=== PATIENT | male | born 1950 | race Caucasian/White ===

== ENCOUNTER 2021-09-04 14:48 | Emergency (ER) | payer OTHER ==
[2021-09-04 16:05] LABS: Absolute Lymphocytes (CBC) 1.6 K/uL (0.7-4.9); Basophils % 0.4 % (0-1.3); Hematocrit 34.8 % (39.6-49.0); MPV 9.1 fL (7.6-11.3); RBC Red Blood Cell Count 3.76 M/uL (4.33-5.43)
--- NOTE | 2021-09-04 16:24 | ER ---
Nurse's Notes [facility] Name: Ferdinand Sánchez Age: 71 yrs Sex: Male : 1950 Arrival Date: 09/04/2021 Time: 14:52 Bed 12 Private MD: Diagnosis: Right Leg Ecchymosis Presentation: 09/04 15:02 Chief complaint: Chief complaint: Patient states: i had RIGHT knee replacement on 08/31. tw2 i wake up to my leg draining every day for 5 days. at [facility] nobody would talk to me. i missed the rehab and follow up because of the pain. Coronavirus screen: At this time, the client does not indicate any symptoms associated with coronavirus-19. Ebola Screen: Patient denies travel to an Ebola-affected area in the 21 days before illness onset. Initial Sepsis Screen: Does the patient meet any 2 criteria? No. Patient's initial sepsis screen is negative. Does the patient have a suspected source of infection? No. Patient's initial sepsis screen is negative. Risk Assessment: Do you want to hurt yourself or someone else? Patient reports no desire to harm self or others. Onset of symptoms was September 04, 2021. 15:02 Method Of Arrival: Wheelchair tw2 15:02 Acuity: PATRICK 3 tw2 Triage Assessment: 15:05 General: Appears in no apparent distress. uncomfortable, Behavior is calm, cooperative, tw2 appropriate for age, talkative. Pain: Complains of pain in right knee. Historical: - Allergies: 15:06 No Known Allergies; tw2 - Home Meds: 15:06 tamsulosin 0.4 mg oral cap 1 cap once daily [Active]; tw2 - PMHx: 15:06 Back pain; Hypertension; tw2 - PSHx: 15:06 right knee surgery; triple bypass; tw2 - Immunization history:: Client reports having NOT received the Covid vaccine. - Social history:: Smoking status: Patient denies any tobacco usage or history of. Patient uses street drugs, marijuana, and "edibles", "biweekly". Screenin:00 Abuse screen: Denies threats or abuse. Denies injuries from another. Nutritional jl7 screening: No deficits noted. Tuberculosis screening: No symptoms or risk factors identified. Fall Risk IV access (20 points). Assessment: 16:00 Reassessment: Patient appears in no apparent distress at this time. No changes from jl7 previously documented assessment. Patient and/or family updated on plan of care and expected duration. Pain level reassessed. Patient is alert, oriented x 3, equal unlabored respirations, skin warm/dry/pink. Vital Signs: 15:02 BP 117 / 84; Pulse 113; Resp 17; Temp 99.2(TE); Pulse Ox 99% on R/A; Weight 108.86 kg tw2 (R); Height 6 ft. 2 in. (187.96 cm) (R); Pain 8/10; 15:02 Body Mass Index 30.81 (108.86 kg, 187.96 cm) tw2 ED Course: 14:52 Patient arrived in ED. ds1 15:02 Arm band placed on. tw2 15:05 Triage completed. tw2 15:18 Jeremiah Lauren PA is PHCP. [facility] 15:18 Leroy Irvin MD is Attending Physician. [facility] 15:21 Taran Fish RN is Primary Nurse. jl7 15:40 Inserted saline lock: 20 gauge in right antecubital area, using aseptic technique. kj1 Blood collected. 15:40 Initial lab(s) drawn, by ks, sent to lab. kj1 16:00 Patient has correct armband on for positive identification. jl7 16:20 Wound care: to surgical wound located on right knee was dressed with 4X4s, Patient jl7 tolerated well. 16:27 No provider procedures requiring assistance completed. IV discontinued, intact, jl7 bleeding controlled, No redness/swelling at site. Pressure dressing applied. Administered Medications: No medications were administered Outcome: 16:24 Discharge ordered by . [facility] 16:27 Discharged to home via wheelchair, with family. jl7 16:27 Condition: stable 16:27 Discharge instructions given to patient, Instructed on discharge instructions, follow up and referral plans. Demonstrated understanding of instructions, follow-up care. 16:38 Patient left the ED. jl7 Signatures: Jeremiah Lauren PA PA jmm Sanford, Demi ds1 Geetha Guardado RN RN tw2 Taran Fish RN RN jl7 Carlie Barnard kj1 Corrections: (The following items were deleted from the chart) 15:55 15:55 Initial lab(s) drawn, by me, sent to lab. kj1 kj1
--- NOTE | 2021-09-04 16:25 | EDPHYS ---
Physician Documentation [facility] Name: Ferdinand Sánchez Age: 71 yrs Sex: Male : 1950 Arrival Date: 09/04/2021 Time: 14:52 Bed 12 Private MD: ED Physician Leroy Irvin HPI: 09/04 15:36 This 71 yrs old Male presents to ER via Wheelchair with complaints of Post jmm Surgical Bleeding - With Pain. 15:36 The patient presents with pain, that is acute. Onset: The symptoms/episode jmm began/occurred gradually, 4 day(s) ago. Modifying factors: The symptoms are alleviated by nothing. the symptoms are aggravated by nothing. Associated signs and symptoms: Pertinent positives: swelling, Pertinent negatives fever. This is a 71-year-old male with a history of hypertension the presents emerge department with complaints of bleeding from his wound site status post his fifth total knee replacement performed on August 31. Patient has fever and chills but states that he has had too much pain to change his dressings and his clothes. Patient missed his follow-up due to pain. . Historical: - Allergies: 15:06 No Known Allergies; tw2 - Home Meds: 15:06 tamsulosin 0.4 mg oral cap 1 cap once daily [Active]; tw2 - PMHx: 15:06 Back pain; Hypertension; tw2 - PSHx: 15:06 right knee surgery; triple bypass; tw2 - Immunization history:: Client reports having NOT received the Covid vaccine. - Social history:: Smoking status: Patient denies any tobacco usage or history of. Patient uses street drugs, marijuana, and "edibles", "biweekly". ROS: 15:36 Constitutional: Negative for fever, chills, and weight loss, Cardiovascular: Negative jmm for chest pain, palpitations, and edema, Respiratory: Negative for shortness of breath, cough, wheezing, and pleuritic chest pain. 15:36 MS/extremity: Positive for pain. 15:36 All other systems are negative. Exam: 15:36 Constitutional: This is a well developed, well nourished patient who is awake, alert, jmm and in no acute distress. Head/Face: atraumatic. Eyes: EOMI, no conjunctival erythema appreciated ENT: Moist Mucus Membranes Neck: Trachea midline, Supple Chest/axilla: Normal chest wall appearance and motion. Cardiovascular: Regular rate and rhythm. No edema appreciated Respiratory: Normal respirations, no respiratory distress appreciated Abdomen/GI: Non distended, soft Back: Normal ROM 15:36 Skin: Ecchymosis noted diffusely to the right anterior thigh, around the wound site. 15:36 Neuro: Orientation: is normal, Mentation: is normal, Memory: is normal. 15:36 Psych: Behavior/mood is pleasant, cooperative. Vital Signs: 15:02 BP 117 / 84; Pulse 113; Resp 17; Temp 99.2(TE); Pulse Ox 99% on R/A; Weight 108.86 kg tw2 (R); Height 6 ft. 2 in. (187.96 cm) (R); Pain 8/10; 15:02 Body Mass Index 30.81 (108.86 kg, 187.96 cm) tw2 MDM: 15:36 Patient medically screened. judit 16:23 Data reviewed: vital signs, nurses notes. Counseling: I had a detailed discussion with david the patient and/or guardian regarding: the historical points, exam findings, and any diagnostic results supporting the discharge/admit diagnosis, lab results, the need for outpatient follow up, to return to the emergency department if symptoms worsen or persist or if there are any questions or concerns that arise at home. ED course: Patient is alert nontoxic in appearance in the ED. Wound was cleaned and redressed. Platelet count was normal. I do not currently suspect a septic joint. Patient advised to follow with orthopedics and otherwise given strict return precautions. Patient understood and agrees to plan of care.. 09/04 15:36 Order name: CBC with Diff; Complete Time: 16:09 [facility] 09/04 16:10 Order name: Wound Care; Complete Time: 16:23 judit Administered Medications: No medications were administered Disposition Summary: 09/04/21 16:24 Discharge Ordered Location: Home david Condition: Stable david Diagnosis - Right Leg Ecchymosis david Followup: david - With: Private Physician - When: 1 - 2 days - Reason: Recheck today's complaints, Continuance of care, Re-evaluation by your physician Discharge Instructions: - Discharge Summary Sheet david - Total Knee Replacement, Care After judit Forms: - Medication Reconciliation Form david - Thank You Letter jmm - Antibiotic Education david - Prescription Opioid Use [facility] Addendum: 09/06/2021 08:37 Co-signature as Attending Physician, Leroy Irvin MD I agree with the assessment and s p3 plan of care. Signatures: Dispatcher [employer] Jeremiah Coulter PA PA jmm Wise, Tara, RN RN tw2 Leroy Irvin MD MD sp3
[2021-09-04 17:17] VITALS: BP 117/84; TEMP 99.2; O2SAT 99
--- OUTSIDE RECORDS SUMMARY | 2021-09-10 15:37 | XMS REPORT | Continuity of Care Document ---
:1950 Author Organization [facility] t Address [address] [place] [address] Care Team Providers Name Role Phone ALAN Attending Clinician Unavailable MD SHAKEEL PHILLIPS Attending Clinician Unavailable MERRILL Attending Clinician Unavailable LAAN Admitting Clinician Unavailable MD SHAKEEL PHILLIPS Admitting Clinician Unavailable Problems This patient has no known problems. Allergies, Adverse Reactions, Alerts This patient has no known allergies or adverse reactions. Medications Ordered Filled Start Stop Current Ordering Indication Dosage Frequency Signature Comments Components Source Medication Medication Date Date Medication? Clinician (SIG) Name Name Losartan Losartan Yes Ty [address] [facility] Potassium Potassium [facility] Aspirin 81 Aspirin 81 Yes Ty [address] [facility] Escitalopra Escitalopra Yes Ty not [facility] m m [facility] &Methfol-B6 &Methfol-B6 [facility] Gabapentin Gabapentin Yes Ty [address] [facility] Mirtazapine Mirtazapine Yes Ty not [facility] Nitroglycer Nitroglycer Yes Ty not [facility] in in [facility] Montelukast [place] Yes Ty not [facility] Sodium Sodium [facility] Pravastatin Pravastatin Yes Ty not [facility] Sodium Sodium [facility] Guaifenesin Guaifenesin Yes Ty [address] [facility] as needed [facility] Carisoprodo Carisoprodo Yes Ty not [facility] Ambien Ambien Yes Ty not [facility] Brilinta Brilinta Yes Ty [address] [facility] Tamsulosin Tamsulosin Yes Ty as [facility] HCl HCl [facility] Carvedilol Carvedilol Yes Ty not [facility] Flonase Flonase Yes Yt not [facility] Procedures This patient has no known procedures. Encounters Start End Encounter Admission Attending Care Care Encounter Source Date/Time Date/Time Type Type Clinicians Facility Department ID 2021-09-08 2021-09-08 Outpatient ALAN, [facility] [id number] 00:00:00 00:00:00 ODETTE 943 [facility] 2021-09-08 2021-09-08 Outpatient ALAN, [facility] [id number] [place] 00:00:00 00:00:00 ODETTE 793 [facility] i 2021-08-31 2021-08-31 Outpatient ALAN, [facility] 481 [id number] [address] 00:00:00 00:00:00 ODETTE 842 Method i 2021-08-26 2021-08-26 Outpatient ALAN, [facility] [id number] [place] 00:00:00 00:00:00 ODETTE 415 Method i 2021-08-16 2021-08-16 Outpatient ALAN, [facility] [id number] [place] 00:00:00 00:00:00 ODETTE 305 Method i 2021-07-22 2021-07-22 Outpatient ALAN, [facility] [id number] [address] 00:00:00 00:00:[address] [address] 2021-07-13 2021-07-13 [facility] [id number] [facility] 2021-06-27 2021-06-27 Outpatient [facility] [id number] [facility] 2021-06-27 2021-06-27 Outpatient [facility] [id number] [facility] 2021-06-21 2021-06-21 Outpatient [facility] [id number] [facility] 2021-06-14 2021-06-14 Outpatient [facility] [id number] [facility] 2021-06-07 2021-06-07 Outpatient [facility] [id number] [facility] 2021-05-25 2021-05-25 Outpatient [facility] [id number] [facility] 2021-05-24 2021-05-24 Outpatient [facility] [id number] [facility] 2021-05-20 2021-05-20 Outpatient [facility] [id number] [facility] 2021-05-11 2021-05-11 Outpatient [facility] [id number] [facility] 2021-03-07 2021-03-07 Outpatient [facility] [id number] [facility] 2021-01-04 2021-01-04 Outpatient [facility] [id number] [facility] 2020-05-14 2020-05-14 [facility] [id number] [facility] 10:00[facility]00 10[facility]00[facility]00 [facility] 2020-05-06 2020-05-06 [facility] [id number] 14:30:00 14:30:00 [facility] 2020-05-03 2020-05-03 Outpatient MRERILL, [facility] [id number] [address] 00:00:00 00:00:[address] [facility] [address] 2020-04-28 2020-04-28 [facility] [id number] [facility] 08:00:00 08:00:00 [facility] 2019-12-29 2019-12-29 Outpatient MERRILL, [facility] [id number] 00:00:00 00:00:[address] [facility] [address] Results Test Description Test Time Test Comments Results Result Comments Source SARS-CoV-2 (COVID-19) RNA [Presence] in Respiratory sp ecimen by 2021-08-26 20:43:50 HAYLEY with probe detection Test Item Value Reference Range Interpretation Comme nts SARS-CoV-2 (COVID-19) RNA [Presence] in Respiratory Not detected No t-Detected specimen by HAYLEY with probe detection (test code = 91626-7) Whether patient is employed in a healthcare setting (test code = 82192-7) Whether the patient has symptoms related to condition of interest (test code = 20531-6) Patient was hospitalized because of this condition (test code = 63578-8) Whether the patient was admitted to intensive care unit (ICU) for condition of interest (test code = 72093-8) Whether patient resides in a congregate care setting (test code = 39160-0)
== END 2021-09-04 16:38 | disposition home or self-care (01) ==
LOC: ER 14:48
DX: R58 Hemorrhage, not elsewhere classified (principal); I10 Essential (primary) hypertension; Z96.651 Presence of right artificial knee joint
CPT/HCPCS: 36415; 85025; 99283

== ENCOUNTER → 2024-01-02 | Emergency (ER) | payer OTHER ==
[~2024-01-02] MED LIST: KETOROLAC 30 MG/ML INJ ONE; NA CHLORIDE 0.9% 500 ML ONE
--- NOTE | 2024-01-02 13:51 | RAD REPORT ---
EXAM DESCRIPTION: CT - Head Brain Wo Cont - 01/02/2024 1:19 pm CLINICAL HISTORY: Head injury status post fall. Weakness COMPARISON: None TECHNIQUE: Computed axial tomography of the head was obtained. IV contrast was not requested. All CT scans are performed using dose optimization technique as appropriate and may include automated exposure control or mA/KV adjustment according to patient size. FINDINGS: An intracranial bleed is not seen The ventricles are normal in caliber No extra-axial fluid collection is noted. Mild to moderate cerebral atrophy. No significant hypodensity within brain noted. Fluid within the sinuses/ mastoids is not seen. 11 millimeter parietal scalp lesion midline IMPRESSION: No acute intracranial abnormality is seen If patient's symptoms persist MRI of the brain would be recommended 11 millimeter parietal scalp lesion nonspecific. Follow-up ultrasound in 3 months could be obtained t o assess stability
[2024-01-02 14:45] LABS: Absolute Eosinophils 0.2 K/uL (0-0.5); Basophils % 0.5 % (0-1.3); Hematocrit 40.2 % (39.6-49.0); Hemoglobin 14.3 g/dL (13.6-17.9); Lymphocytes % 24.3 % (15.3-44.8); MCV 91.4 fL (80-100); Platelets 152 thou/uL (152-406)
[2024-01-02 14:49] LABS: Specific Gravity 1.007 (1.005-1.030); Urine Bilirubin NEGATIVE (Negative); Urine Blood Negative (Negative); Urine Clarity Clear (Clear); Urine Color Light-Yellow (Yellow); Urine Glucose NEGATIVE (Negative); Urine Protein NEGATIVE (Negative); Urine Urobilinogen Normal (Normal); Urine pH 5.5 (5.0-7.0)
[2024-01-02 16:09] LABS: Protime INR 0.97
[2024-01-02 16:15] LABS: Albumin 3.6 g/dL (3.4-5.0); Albumin/Globulin Ratio 1.3 (1.1-1.8); Anion Gap 7.1 mEq/L (5.0-15.0); Bilirubin Direct 0.3 mg/dL (0-0.2); Bilirubin Indirect, Calculated 0.7 mg/dL (0.2-0.8); Globulin 2.7 g/dL (2.3-3.5); Magnesium 2.3 mg/dL (1.6-2.4); Potassium 4.1 mEq/L (3.5-5.1); Protein, Total 6.3 g/dL (6.4-8.2); Troponin High Sensitivity 18.2 pg/mL (<58.9)
--- NOTE | 2024-01-02 17:23 | ER ---
Nurse's Notes [facility] Name: Ferdinand Sánchez Age: 73 yrs Sex: Male : 1950 Arrival Date: 01/02/2024 Time: 12:56 Bed 3 Private MD: Diagnosis: Weakness Presentation: 01/01 13:33 Chief complaint: Patient states: Pt has fallen 4 times in 2 days with last event at tl4 0100 this am. Pt states he has "controlled descents". Pt denies striking his head, LOC. Left hip/shoulder have been painful prior to fall. but he has not been evaluated for them. Coronavirus screen: At this time, the client does not indicate any symptoms associated with coronavirus-19. Ebola Screen: No symptoms or risks identified at this time. Initial Sepsis Screen: Does the patient meet any 2 criteria? No. Patient's initial sepsis screen is negative. Does the patient have a suspected source of infection? No. Patient's initial sepsis screen is negative. Risk Assessment: Do you want to hurt yourself or someone else? Patient reports no desire to harm self or others. Onset of symptoms was December 31, 2023. 13:33 Method Of Arrival: EMS: [facility] tl4 13:33 Acuity: PATRICK 3 tl4 Triage Assessment: 13:40 General: Appears in no apparent distress. Behavior is calm, cooperative. Pain: tl4 Complains of pain in pelvis, left arm and left leg. EENT: No deficits noted. No signs and/or symptoms were reported regarding the EENT system. Neuro: Reports weakness in generalized. Cardiovascular: No deficits noted. Respiratory: No deficits noted. GI: No deficits noted. No signs and/or symptoms were reported involving the gastrointestinal system. : No deficits noted. No signs and/or symptoms were reported regarding the genitourinary system. Derm: No deficits noted. No signs and/or symptoms reported regarding the dermatologic system. Musculoskeletal: Reports weakness in right leg and left leg. Historical: - Allergies: 13:38 No Known Allergies; tl4 - Home Meds: 15:29 Aspirin Oral [Active]; Celecoxib Oral [Active]; cetirizine oral [Active]; clopidogrel tl4 oral [Active]; Cyclobenzaprine Oral [Active]; duloxetine oral [Active]; Eliquis oral [Active]; Isosorbide Mononitrate Oral [Active]; metoprolol succinate oral [Active]; Oxycodone HCl Oral [Active]; pregabalin Oral [Active]; Trazodone Oral [Active]; valsartan oral [Active]; - PMHx: 13:38 Back pain; Hypertension; Atrial fibrillation; tl4 - PSHx: 13:38 right knee surgery; triple bypass; Coronary artery bypass graft; cardiac stent; tl4 - Immunization history:: Adult Immunizations unknown. - Social history:: Smoking status: Patient/guardian denies using tobacco, the patient reports quitting approximately 30 years ago. Screenin:56 [facility] ED Fall Risk Assessment (Adult) History of falling in the last 3 months, kc6 including since admission No falls in past 3 months (0 pts) Confusion or Disorientation No (0 pts) Intoxicated or Sedated No (0 pts) Impaired Gait No (0 pts) Mobility Assist Device Used No (0 pt) Altered Elimination No (0 pt) Score/Fall Risk Level 0 - 2 = Low Risk. Abuse screen: Denies threats or abuse. Denies injuries from another. Nutritional screening: No deficits noted. Tuberculosis screening: No symptoms or risk factors identified. Assessment: 15:56 General: Appears in no apparent distress. comfortable, well groomed, well developed, kc6 Behavior is calm, cooperative, appropriate for age. Neuro: Level of Consciousness is awake, alert, obeys commands, Oriented to person, place, time, situation, Appropriate for age. Cardiovascular: Capillary refill < 3 seconds. Respiratory: Airway is patent Trachea midline Respiratory effort is even, unlabored, Respiratory pattern is regular, symmetrical. GI: No signs and/or symptoms were reported involving the gastrointestinal system. : No signs and/or symptoms were reported regarding the genitourinary system. EENT: No signs and/or symptoms were reported regarding the EENT system. Derm: Skin is pink, warm \\T\\ dry. Bruising that is dark purple, on right leg and left leg and left arm. Musculoskeletal: No signs and/or symptoms reported regarding the musculoskeletal system. Circulation, motion, and sensation intact. Capillary refill < 3 seconds, Range of motion: intact in all extremities. 16:56 Reassessment: Patient appears in no apparent distress at this time. No changes from kc6 previously documented assessment. Patient and/or family updated on plan of care and expected duration. Pain level reassessed. Patient is alert, oriented x 3, equal unlabored respirations, skin warm/dry/pink. Vital Signs: 13:33 BP 134 / 65; Pulse 90; Resp 17; Temp 97.5(O); Pulse Ox 100% on R/A; Weight 106.59 kg; tl4 Height 6 ft. 2 in. ; Pain 8/10; 15:49 BP 133 / 78 LA Supine (auto/reg); Pulse 65; kc6 15:49 BP 123 / 74 LA Sitting (auto/reg); Pulse 77; kc6 15:49 BP 143 / 84 LA Standing (auto/reg); Pulse 82; kc6 16:56 BP 139 / 81; Pulse 71; Resp 16 S; Pulse Ox 97% on R/A; kc6 17:30 BP 163 / 92; Pulse 75; Resp 16; Temp 97; Pulse Ox 97% ; ko1 13:33 Body Mass Index 30.17 (106.59 kg, 187.96 cm) tl4 13:33 Pain Scale: Adult tl4 ED Course: 13:03 Patient arrived in ED. mg5 13:04 Kandis Barnard [facility]C [facility] kb 13:04 Richard Brown MD is Attending Physician. kb 13:21 CT Head Brain wo Cont In Process Unspecified. EDMS 13:38 Triage completed. tl4 13:40 Arm band placed on left wrist. tl4 14:36 Basic Metabolic Panel Sent. ls5 14:36 CBC with Diff Sent. ls5 14:36 Hepatic Function Sent. ls5 14:36 Magnesium Sent. ls5 14:36 Protime (+inr) Sent. ls5 14:36 Ptt, Activated Sent. ls5 14:36 Troponin High Sensitivity Sent. ls5 15:24 Ana Montague, RN is Primary Nurse. kc6 15:56 Patient has correct armband on for positive identification. Bed in low position. Call kc6 light in reach. Side rails up X2. Adult w/ patient. Client placed on continuous cardiac and pulse oximetry monitoring. NIBP monitoring applied. nuclear monitoring technician on. 16:05 Urine collected: clean catch specimen, clear. me1 17:30 Provided Education on: na. ko1 17:30 No provider procedures requiring assistance completed. IV discontinued, intact, ko1 bleeding controlled, No redness/swelling at site. Pressure dressing applied. Administered Medications: 16:06 Drug: NS 0.9% IV 500 ml IV at bolus once Route: IV; Rate: bolus; Site: left antecubital;kc6 16:50 Drug: Ketorolac IVP 15 mg IVP once Route: IVP; Site: left antecubital; kc6 17:30 Follow up: Response: No adverse reaction ko1 Medication: 17:30 VIS not applicable for this client. ko1 Outcome: 17:22 Discharge ordered by MD. garcía 17:30 Discharged to home ambulatory, ko1 17:30 Condition: stable 17:30 Discharge instructions given to patient, Instructed on discharge instructions, follow up and referral plans. Demonstrated understanding of instructions, follow-up care, 17:38 Patient left the ED. ko1 Signatures: Dispatcher [employer] EDKandis Helms, RAJAN-C KNEE BOLTER-CkAna Rivera RN RN kc6 Celeste San RN RN ko1 Eugene Reynoso ls5 India Villalobos, RN RN ma1 Renetta George mg5 Eze Zaman RN RN tl4
--- NOTE | 2024-01-02 17:23 | EDPHYS ---
Physician Documentation [facility] Name: Ferdinand Sánchez Age: 73 yrs Sex: Male : 1950 Arrival Date: 01/02/2024 Time: 12:56 Bed 3 Private MD: ED Physician Richard Brown HPI: 01/01 13:38 This 73 yrs old Male presents to ER via Unassigned with complaints of Fall Injury. kb 13:38 Pt is a 73 year old male who presents for weakness that started 2 days ago. States he kb has had trouble getting to the restroom due to weakness and has had to lower himself to the ground multiple times and crawl back to the bed. States the weakness is from hips down. Denies chest pain, palpitations, headache, shortness of breath. Denies any falls or injuries. Historical: - Allergies: 13:38 No Known Allergies; tl4 - Home Meds: 15:29 Aspirin Oral [Active]; Celecoxib Oral [Active]; cetirizine oral [Active]; clopidogrel tl4 oral [Active]; Cyclobenzaprine Oral [Active]; duloxetine oral [Active]; Eliquis oral [Active]; Isosorbide Mononitrate Oral [Active]; metoprolol succinate oral [Active]; Oxycodone HCl Oral [Active]; pregabalin Oral [Active]; Trazodone Oral [Active]; valsartan oral [Active]; - PMHx: 13:38 Back pain; Hypertension; Atrial fibrillation; tl4 - PSHx: 13:38 right knee surgery; triple bypass; Coronary artery bypass graft; cardiac stent; tl4 - Immunization history:: Adult Immunizations unknown. - Social history:: Smoking status: Patient/guardian denies using tobacco, the patient reports quitting approximately 30 years ago. ROS: 13:38 Constitutional: As per HPI kb Exam: 13:38 Constitutional: This is a well developed, well nourished patient who is awake, alert, kb and in no acute distress. Head/Face: Normocephalic, atraumatic. ENT: Moist Mucous membranes Cardiovascular: Regular rate Respiratory: Respirations even and unlabored. No increased work of breathing. Talking in full sentences Abdomen/GI: Soft, non-tender. No distention Skin: Warm, dry with normal turgor. Normal color. MS/ Extremity: Pulses equal, no cyanosis. Neurovascular intact. Full, normal range of motion. Neuro: Awake and alert, GCS 15, oriented to person, place, time, and situation. Moves all extremities. 15:47 ECG was reviewed by the Attending Physician. kb Vital Signs: 13:33 BP 134 / 65; Pulse 90; Resp 17; Temp 97.5(O); Pulse Ox 100% on R/A; Weight 106.59 kg; tl4 Height 6 ft. 2 in. ; Pain 8/10; 15:49 BP 133 / 78 LA Supine (auto/reg); Pulse 65; kc6 15:49 BP 123 / 74 LA Sitting (auto/reg); Pulse 77; kc6 15:49 BP 143 / 84 LA Standing (auto/reg); Pulse 82; kc6 16:56 BP 139 / 81; Pulse 71; Resp 16 S; Pulse Ox 97% on R/A; kc6 17:30 BP 163 / 92; Pulse 75; Resp 16; Temp 97; Pulse Ox 97% ; ko1 13:33 Body Mass Index 30.17 (106.59 kg, 187.96 cm) tl4 13:33 Pain Scale: Adult tl4 MDM: 13:04 Patient medically screened. kb 13:38 Data reviewed: vital signs, nurses notes. kb 16:27 ED course: Discussed all results with pt. Pt in agreement with outpatient treatment. Pt kb reports he hasn't eaten since yesterday, tray ordered then will ambulate pt. Plan to discharge home. 17:21 Differential diagnosis: cardiac arrhythmia, generalized weakness, hypovolemia, TIA. kb Consideration of Admission/Observation Escalation of care including admission/observation considered. admission considered, but VSS, pt ambulatory with steady gait and reports he is feeling better. Pt would like to go home. Counseling: I had a detailed discussion with the patient and/or guardian regarding the historical points, exam findings, and any diagnostic results supporting the discharge/admit diagnosis, lab results, radiology results, the need for outpatient follow up, a family practitioner, to return to the emergency department if symptoms worsen or persist or if there are any questions or concerns that arise at home. ED course: Pt ambulates with steady gait. States he is feeling better and ready to go home. . 01/01 13:04 Order name: Basic Metabolic Panel; Complete Time: 16:17 kb 01/01 13:04 Order name: CBC with Diff; Complete Time: 14:55 kb 01/01 13:04 Order name: Hepatic Function; Complete Time: 16:17 kb 01/01 13:04 Order name: Magnesium; Complete Time: 16:17 kb 01/01 13:04 Order name: Protime (+inr); Complete Time: 16:11 kb 01/01 13:04 Order name: Ptt, Activated; Complete Time: 16:11 kb 01/01 13:04 Order name: Troponin High Sensitivity; Complete Time: 16:17 kb 01/01 13:04 Order name: Urinalysis w/ reflexes; Complete Time: 14:53 kb 01/01 13:04 Order name: CT Head Brain wo Cont; Complete Time: 13:51 kb 01/01 13:04 Order name: EKG; Complete Time: 13:05 kb 01/01 13:04 Order name: Cardiac monitoring; Complete Time: 15:27 kb 01/01 13:04 Order name: EKG - Nurse/Tech; Complete Time: 15:48 kb 01/01 13:04 Order name: IV Saline Lock; Complete Time: 14:35 kb 01/01 13:04 Order name: Labs collected and sent; Complete Time: 14:35 kb 01/01 13:04 Order name: NPO; Complete Time: 15:27 kb 01/01 13:04 Order name: O2 Per Protocol; Complete Time: 15:27 kb 01/01 13:04 Order name: O2 Sat Monitoring; Complete Time: 15:27 kb 01/01 13:04 Order name: Orthostatics; Complete Time: 15:48 kb 01/01 14:54 Order name: Labs - recollect needed: recollect light green and light blue top; Complete bd Time: 15:48 0306 17:17 Order name: Misc. Order: ambulate pt; Complete Time: 17:30 kb EC:47 Rate is 74 beats/min. Rhythm is regular. QRS [place] is Normal. PA interval is normal at kb 196 msec. QRS interval is normal at 108 msec. QT interval is normal at 459 msec. Administered Medications: 16:06 Drug: NS 0.9% IV 500 ml IV at bolus once Route: IV; Rate: bolus; Site: left antecubital;kc6 16:50 Drug: Ketorolac IVP 15 mg IVP once Route: IVP; Site: left antecubital; kc6 17:30 Follow up: Response: No adverse reaction ko1 Disposition Summary: 01/02/24 17:22 Discharge Ordered Notes: Location: Home kb Condition: Stable kb Diagnosis - Weakness kb Followup: kb - With: Emergency Department - When: As needed - Reason: Worsening of condition Followup: kb - With: Private Physician - When: 2 - 3 days - Reason: Recheck today's complaints, Continuance of care, Re-evaluation by your physician Discharge Instructions: - Discharge Summary Sheet kb - Weakness, [id number] kb Forms: - Medication Reconciliation Form kb - Thank You Letter kb - Antibiotic Education kb - Prescription Opioid Use kb - Patient Portal Instructions kb - Leadership Thank You Letter kb Addendum: 01/07/2024 06:57 Co-signature as Attending Physician, Richard Brown MD I reviewed the patient's care r n provided by the Advanced Practice Provider and agree with the diagnosis and treatment plan. Signatures: Dispatcher [employer] EDKandis Helms, RAJAN-C SEGMENT PRODUCER-CkMaria R Davis Roman, MD MD rn Campbell, Kaitlyn, RN RN kc6 Eze Zaman RN RN tl4 Celeste San RN ko1 Corrections: (The following items were deleted from the chart) 01/01 13:40 13:38 Pt is a 73 year old male who presents for weakness that started 2 days ago. kb States he has had trouble getting to the restroom due to weakness and has had to lower himself to the ground multiple times and crawl back to the bed. States the weakness is from hips down. Denies chest pain, palpitations, headache, shortness of breath.. kb
[2024-01-02 17:52] VITALS: O2SAT 97
[2024-01-02 18:13] VITALS: BP 163/92; TEMP 97
--- NOTE | 2024-01-03 14:15 | EKG ---
Test Date: 2024-01-02 Test Time: 15:31:49 Product Applications Scientist: MIREILLE MEASUREMENT RESULTS: Intervals: Rate: 68 MO: 196 QRSD: 108 QT: 418 QTc: 444 Jay Em: P: 83 MO: 196 QRS: 1 T: 86 INTERPRETIVE STATEMENTS: Normal sinus rhythm Nonspecific ST and T wave abnormality Abnormal ECG Compared to ECG 12/24/2005 07:43:27 ST (T wave) deviation now present Sinus bradycardia no longer present Myocardial infarct finding no longer present Electronically Signed On 01-03-24 14:12:58 PROTOTYPE SPECIAL BUILD by Lito Wilson
--- NOTE | 2024-01-03 14:15 | EKG ---
Test Date: 2024-01-02 Test Time: 15:26:35 Yarn Polishing Machine Operator: MRIEILLE MEASUREMENT RESULTS: Intervals: Rate: 74 IA: 196 QRSD: 108 QT: 414 QTc: 459 [place]: P: 83 IA: 196 QRS: -11 T: 78 INTERPRETIVE STATEMENTS: Normal sinus rhythm Cannot rule out Anterior infarct, age undetermined Abnormal ECG Compared to ECG 12/24/2005 07:43:27 Sinus bradycardia no longer present Myocardial infarct finding still present Electronically Signed On 01-03-24 14:12:59 GLUE CLAMP OPERATOR by Lito Wilson
== END ==
LOC: ER 12:56
DX: R53.1 Weakness (principal); I10 Essential (primary) hypertension; I48.91 Unspecified atrial fibrillation; Z95.1 Presence of aortocoronary bypass graft; Z95.818 Presence of other cardiac implants and grafts; Z79.01 Long term (current) use of anticoagulants; Z79.82 Long term (current) use of aspirin
CPT/HCPCS: 85025; 80048; 36415; 83735; 85610; 80076; 85730; 81003; 84484; 70450; J7040; 93005; 96374; 99285

== ENCOUNTER 2024-01-10 12:18 | Inpatient (IN) | payer OTHER ==
[2024-01-10 13:45] LABS: Absolute Eosinophils 0.1 K/uL (0-0.5); Absolute Lymphocytes (CBC) 1.4 K/uL (0.7-4.9); Absolute Monocytes 0.9 K/uL (0.1-1.3); Absolute Neutrophil 6.8 K/uL (1.8-8.0); Basophils % 0.4 % (0-1.3); Eosinophils % 1.3 % (0-4.4); Hematocrit 39.8 % (39.6-49.0); Hemoglobin 14.1 g/dL (13.6-17.9); Lymphocytes % 14.6 % (15.3-44.8); MCH 32.2 pg (27.0-35.0); MCHC 35.4 g/dL (32.0-36.0); MPV 9.3 fL (7.6-11.3); Monocytes % 10.1 % (3.3-12.3); Neutrophils % 73.6 % (41.7-73.7); Platelets 189 thou/uL (152-406); RBC Red Blood Cell Count 4.37 M/uL (4.33-5.43); Red Cell Distribution Width 13.5 % (12.1-15.2)
[2024-01-10 13:46] LABS: PT Prothrombin Time 10.9 SECONDS (9.5-12.5); Protime INR 0.99
[2024-01-10] MEDS ORDERED: ONDANSETRON 4 MG/2 ML VIAL ONE (13:46)
[2024-01-10] MEDS ORDERED: FENTANYL CITR 100 MCG/2 ML ONE (13:47)
--- NOTE | 2024-01-10 14:02 | RAD REPORT ---
EXAM DESCRIPTION: RAD - Chest Single View - 01/10/2024 1:54 pm CLINICAL HISTORY: CHEST PAIN Chest pain. COMPARISON: <Comparisons> FINDINGS: Portable technique limits examination quality. Mild interstitial pulmonary edema. The heart is normal in size. No displaced fractures.Sternotomy wir es present. IMPRESSION: Mild CHF.
[2024-01-10 14:05] LABS: Albumin 3.3 g/dL (3.4-5.0); Albumin/Globulin Ratio 1.2 (1.1-1.8); Anion Gap 5.7 mEq/L (5.0-15.0); Bilirubin Direct 0.2 mg/dL (0-0.2); Bilirubin Indirect, Calculated 0.4 mg/dL (0.2-0.8); Bilirubin Total 0.6 mg/dL (0.2-1.0); Globulin 2.7 g/dL (2.3-3.5); Magnesium 2.3 mg/dL (1.6-2.4); Potassium 3.7 mEq/L (3.5-5.1)
[2024-01-10 14:08] LABS: Troponin High Sensitivity 127.1 pg/mL (<58.9)
--- NOTE | 2024-01-10 14:33 | ER ---
Nurse's Notes [facility] Name: Ferdinand Sánchez Age: 73 yrs Sex: Male : 1950 Arrival Date: 01/10/2024 Time: 12:18 Bed 16 Private MD: Diagnosis: Subsequent non-ST elevation (NSTEMI) myocardial infarction Presentation: 01/09 13:00 Chief complaint: Patient states: Woke up with chest pain this morning. Got nitro and nj1 aspirin by EMS, denies pain at this time. 13:00 Coronavirus screen: Vaccine status: Patient reports being unvaccinated. Ebola Screen: nj1 Patient denies travel to an Ebola-affected area in the 21 days before illness onset. Initial Sepsis Screen: Does the patient meet any 2 criteria? No. Patient's initial sepsis screen is negative. Does the patient have a suspected source of infection? No. Patient's initial sepsis screen is negative. Risk Assessment: Do you want to hurt yourself or someone else? Patient reports no desire to harm self or others. Onset of symptoms was January 10, 2024. 13:00 Method Of Arrival: EMS: [facility] nj1 13:00 Acuity: PATRICK 3 nj1 13:00 Care prior to arrival: Medication(s) given: ASA, 81 mg, x 4, Nitroglycerin, 0.4 mg SL x nj1 2, IV initiated. 20 GA, in the right antecubital area, Glucose check: 123. Triage Assessment: 13:00 General: Appears in no apparent distress. comfortable, Behavior is calm, cooperative, nj1 appropriate for age. Historical: - Allergies: 13:14 No Known Allergies; nj1 - PMHx: 13:14 Atrial fibrillation; Back pain; Hypertension; nj1 - PSHx: 13:14 cardiac stent; Coronary artery bypass graft; right knee surgery; triple bypass; nj1 - Immunization history:: Client reports having NOT received the Covid vaccine. - Social history:: Smoking status: Patient denies any tobacco usage or history of. Screenin:36 [facility] ED Fall Risk Assessment (Adult) History of falling in the last 3 months, nj1 including since admission No falls in past 3 months (0 pts) Confusion or Disorientation No (0 pts) Intoxicated or Sedated No (0 pts) Impaired Gait No (0 pts) Mobility Assist Device Used No (0 pt) Altered Elimination No (0 pt) Score/Fall Risk Level 0 - 2 = Low Risk Oriented to surroundings, Maintained a safe environment, Hourly rounding (assess needs \T\ fall precautionary measures) done. Abuse screen: Denies threats or abuse. Denies injuries from another. Nutritional screening: No deficits noted. Tuberculosis screening: No symptoms or risk factors identified. Assessment: 13:00 General: Appears in no apparent distress. comfortable, Behavior is calm, cooperative, nj1 appropriate for age. 13:00 Pain: Denies pain. Neuro: Level of Consciousness is awake, alert, obeys commands, nj1 Oriented to person, place, time, situation. Cardiovascular: Patient's skin is warm and dry. Respiratory: Airway is patent Respiratory effort is even, unlabored. 13:50 Reassessment: Patient appears in no apparent distress at this time. Patient and/or nj1 family updated on plan of care and expected duration. Pain level reassessed. Patient is alert, oriented x 3, equal unlabored respirations, skin warm/dry/pink. Pain: Complains of pain in hips Pain currently is 6 out of 10 on a pain scale. 15:35 Reassessment: Patient appears in no apparent distress at this time. Patient and/or nj1 family updated on plan of care and expected duration. Pain level reassessed. Patient is alert, oriented x 3, equal unlabored respirations, skin warm/dry/pink. 16:46 Reassessment: Patient appears in no apparent distress at this time. Resting/sleeping. nj1 18:04 Reassessment: Patient appears in no apparent distress at this time. Patient and/or nj1 family updated on plan of care and expected duration. Pain level reassessed. Patient is alert, oriented x 3, equal unlabored respirations, skin warm/dry/pink. [facility] here to transport patient. Report given to Krystle ANDREW. Vital Signs: 13:00 BP 145 / 79; Pulse 87; Resp 18; Temp 97.9(O); Pulse Ox 99% on R/A; Weight 105.23 kg; nj1 Height 6 ft. 2 in. ; Pain 0/10; 14:02 BP 154 / 83; Pulse 78; Resp 11; Pulse Ox 98% on R/A; nj1 15:35 BP 136 / 60; Pulse 80; Resp 15; Pulse Ox 97% on R/A; Pain 6/10; nj1 16:44 BP 144 / 62; Pulse 88; Resp 20; Pulse Ox 100% on R/A; nj1 18:05 BP 149 / 84; Pulse 89; Resp 14; Pulse Ox 97% on R/A; nj1 13:00 Body Mass Index 29.79 (105.23 kg, 187.96 cm) nj1 13:00 Pain Scale: Adult nj1 15:35 Pain Scale: Adult nv1 ED Course: 12:22 Patient arrived in ED. as6 13:00 Patient has correct armband on for positive identification. Bed in low position. Call [facility] light in reach. Side rails up X 1. 13:00 Provided Education on: call light, fall precautions. nj1 13:00 Client placed on continuous cardiac and pulse oximetry monitoring. NIBP monitoring nj1 applied. air sampling and monitoring on. 13:06 Sunil Perez PA is PHCP. cp 13:06 Mani Bailey MD is Attending Physician. cp 13:11 Johanny Jules, RN is Primary Nurse. nj1 13:13 Triage completed. nj1 13:15 Arm band placed on. nj1 13:15 Warm blanket given. nj1 13:25 Initial lab(s) drawn, by tx, sent to lab. nj1 13:30 EKG done. nj1 13:50 Lights dimmed. nj1 13:56 XRAY Chest (1 view) In Process Unspecified. EDMS 14:17 Notified Charge Nurse of Troponin 127.1, unable to locate provider, Alejandra Perez. nj1 14:19 Notified ED physician of a critical lab result(s). troponin 127.1, Dr. Lazar informed ll1 (couldn't find C. LULÚ Perez). 14:32 Eliot Brown MD is Hospitalizing Provider. cp 15:03 Angio Aorta For Dissection In Process Unspecified. EDMS 16:22 Inserted saline lock: 24 gauge in left hand, using aseptic technique. nj1 16:25 spoke with keesha at the [facility] transfer center . bc6 16:39 spoke with keesha at the [facility] transfer center with an acceptance bed #[id number]. bc6 17:14 packet given to attending nurse . Johanny Jules . awaiting report to be called. bc6 17:28 No provider procedures requiring assistance completed. Patient transferred, IV remains nj1 in place. 17:30 spoke to [place] with [facility] given an ETA of 30 minutes. 6 17:43 Primary Nurse role handed off by Johanny Jules, QUYNH nj1 17:44 Johanny Jules, RN is Primary Nurse. nj1 Administered Medications: 13:50 Drug: Ondansetron IVP 4 mg IVP once; over 2 minutes Route: IVP; Site: right forearm; nj1 14:30 Follow up: Response: No adverse reaction nj1 13:52 Drug: fentaNYL (PF) IVP 25 mcg IVP once Route: IVP; Site: right forearm; nj1 14:30 Follow up: Response: No adverse reaction; Pain is decreased nj1 16:23 Drug: HEParin IV 4000 units IV at bolus once {Co-Signature: [email or web address] (Eze Zaman RN).} nj1 Route: IV; Rate: bolus; Site: right forearm; 16:23 Follow up: Response: No adverse reaction; IV Status: Completed infusion; IV Intake: nj1 0.8ml 16:25 Drug: Heparin (NM Drip) 12 units/kg/[place] - ([place] [address] units, D5W IV 500 ml) IV at [facility] calculated rate Per protocol; Max initial rate 1000 units/hr {Co-Signature: [email or web address] (Eze Zaman RN).} Route: IV; Rate: calculated rate; Site: right forearm; 18:12 Follow up: Response: No adverse reaction; IV Status: Infusion continued upon transfer; nj1 IV Intake: 35ml Medication: 17:28 VIS not applicable for this client. nj1 Intake: 16:23 IV: 1ml; Total: 1ml. nj1 18:12 IV: 35ml; Total: 36ml. nj1 Outcome: 14:33 Decision to Hospitalize by Provider. cp 16:08 ER care complete, transfer ordered by MD. cp 17:13 Transferred by ground EMS to [facility], Transfer form nj1 completed. Note: Report called to Rina BEAUCHAMP 17:13 Condition: stable nj1 17:13 Instructed on the need for transfer, 18:12 Patient left the ED. [facility] Signatures: Dispatcher [employer] EDFL Sunil Perez PA PA cp Cecilio Rogel RN RN 1 Nate Eugene RN RN as6 Roberta Steinberg bc6 Johanny Jules RN RN nj1 Eze Zaman RN tl4 Corrections: (The following items were deleted from the chart) 14:20 14:19 Notified ED physician of a critical lab result(s). troponin 142.1, Dr. Lazar, ll1 couldn't find C. LULÚ Perez ll1 16:46 15:35 Pulse 80bpm; Resp 15bpm; Pulse Ox 97% RA; Pain 6/10, Adult; nj1 nj1
--- NOTE | 2024-01-10 14:33 | EDPHYS ---
Physician Documentation [facility] Name: Ferdinand Sánchez Age: 73 yrs Sex: Male : 1950 Arrival Date: 01/10/2024 Time: 12:18 Bed 16 Private MD: ED Physician Mani Bailey HPI: 01/09 13:20 This 73 yrs old Male presents to ER via EMS with complaints of Chest Pain. cp 13:20 The patient or guardian reports chest pain that is located primarily in the substernal cp area. 13:20 Onset: this morning, about 1000 upon awakening. cp 13:20 The pain does not radiate. cp 13:20 The chest pain is described as aching. Duration: The patient or guardian reports a cp single episode, that is now resolved. EMS care prior to arrival includes: aspirin, nitroglycerin. Historical: - Allergies: 13:14 No Known Allergies; nj1 - PMHx: 13:14 Atrial fibrillation; Back pain; Hypertension; nj1 - PSHx: 13:14 cardiac stent; Coronary artery bypass graft; right knee surgery; triple bypass; nj1 - Immunization history:: Client reports having NOT received the Covid vaccine. - Social history:: Smoking status: Patient denies any tobacco usage or history of. ROS: 13:30 Constitutional: Negative for body aches, chills, fever, poor PO intake, cp 13:30 Eyes: Negative for injury, pain, redness, and discharge, cp 13:30 ENT: Negative for drainage from ear(s), ear pain, sore throat, difficulty swallowing, difficulty handling secretions, 13:30 Cardiovascular: Positive for chest pain, Negative for edema, palpitations, 13:30 Respiratory: Negative for cough, shortness of breath, wheezing, 13:30 Abdomen/GI: Negative for abdominal pain, vomiting, diarrhea, constipation, 13:30 Neuro: Negative for altered mental status, dizziness, headache, numbness, syncope, weakness, 13:30 All other systems are negative, Exam: 13:33 Constitutional: The patient appears in no acute distress, alert, awake, cp non-diaphoretic, non-toxic, well developed, well nourished, 13:33 Head/Face: Normocephalic, atraumatic. cp 13:33 Eyes: Periorbital structures: appear normal, Conjunctiva: normal, no exudate, no injection, Sclera: no appreciated abnormality, Lids and lashes: appear normal, bilaterally, 13:33 ENT: External ear(s): are unremarkable, Nose: is normal, Mouth: Lips: moist, Oral mucosa: pink and intact, moist, Posterior pharynx: is normal, airway is patent, no erythema, no exudate, 13:33 Neck: ROM/movement: is normal, is supple, without pain, no range of motions limitations, 13:33 Chest/axilla: Inspection: normal, 13:33 Cardiovascular: Rate: normal, Rhythm: regular, Edema: is not appreciated, JVD: is not appreciated, 13:33 Respiratory: the patient does not display signs of respiratory distress, Respirations: normal, no use of accessory muscles, no retractions, labored breathing, is not present, Breath sounds: are clear throughout, no decreased breath sounds, no stridor, no wheezing, 13:33 Abdomen/GI: Inspection: abdomen appears normal, Palpation: abdomen is soft and non-tender, in all quadrants, 13:33 Back: pain, is absent, ROM is normal, 13:33 Neuro: Orientation: to person, place \T\ time. Mentation: is normal, Motor: moves all fours, strength is normal, Sensation: is normal, Vital Signs: 13:00 BP 145 / 79; Pulse 87; Resp 18; Temp 97.9(O); Pulse Ox 99% on R/A; Weight 105.23 kg; nj1 Height 6 ft. 2 in. ; Pain 0/10; 14:02 BP 154 / 83; Pulse 78; Resp 11; Pulse Ox 98% on R/A; nj1 15:35 BP 136 / 60; Pulse 80; Resp 15; Pulse Ox 97% on R/A; Pain 6/10; nj1 16:44 BP 144 / 62; Pulse 88; Resp 20; Pulse Ox 100% on R/A; nj1 18:05 BP 149 / 84; Pulse 89; Resp 14; Pulse Ox 97% on R/A; nj1 13:00 Body Mass Index 29.79 (105.23 kg, 187.96 cm) nj 13:00 Pain Scale: Adult nj 15:35 Pain Scale: Adult [facility] MDM: 13:06 Patient medically screened. cp 15:30 Data reviewed: vital signs, nurses notes, lab test result(s), EKG, radiologic studies, cp CT scan, plain films. 15:30 The patient was not given aspirin in the Emergency Department. Administered by EMS. cp 16:10 Management of patient was discussed with the following: Hospitalist: Vish Fuentes NP cp requests transfer for higher level of care after consultation with assembler bonding due to patient's history of CPR after having cath procedure previously. 01/09 13:12 Order name: Basic Metabolic Panel; Complete Time: 14:21 cp 01/09 14:21 Interpretation: Normal except: CL 110; GLUC 112; GFR 80. cp 01/09 13:12 Order name: CBC with Diff; Complete Time: 14:21 cp 01/09 14:21 Interpretation: Normal except: LYM% 14.6. cp 01/09 13:12 Order name: LFT's; Complete Time: 14:21 cp 01/09 14:21 Interpretation: Normal except: TP 6.0; ALB 3.3. cp 01/09 13:12 Order name: Magnesium; Complete Time: 14:21 cp 01/09 13:12 Order name: NT PRO-BNP; Complete Time: 14:21 cp 01/09 14:21 Interpretation: Abnormal: NT PRO-BNP 588. cp 01/09 13:12 Order name: PT-INR cp 01/09 13:12 Order name: Troponin HS; Complete Time: 14:21 cp 14 14:21 Interpretation: Abnormal: Troponin HS 127.1. cp 01/09 15:39 Order name: Ptt, Activated la1 01/09 17:30 Order name: PTT, Activated Partial Thromb EDMS 01/09 13:12 Order name: XRAY Chest (1 view); Complete Time: 14:21 cp 01/09 14:56 Order name: Angio Aorta For Dissection; Complete Time: 15:24 EDMS 01/09 15:24 Interpretation: Reviewed. cp 01/09 15:45 Order name: Echo with Doppler EDMS 01/09 13:12 Order name: EKG; Complete Time: 13:13 cp 01/09 13:12 Order name: Cardiac monitoring; Complete Time: 13:15 cp 01/09 13:12 Order name: EKG - Nurse/Tech; Complete Time: 13:35 cp 01/09 13:12 Order name: IV Saline Lock; Complete Time: 13:15 cp 01/09 13:12 Order name: Labs collected and sent; Complete Time: 13:35 cp 01/09 13:12 Order name: O2 Per Protocol; Complete Time: 13:15 cp 01/09 13:12 Order name: O2 Sat Monitoring; Complete Time: 13:15 cp Administered Medications: 13:50 Drug: Ondansetron IVP 4 mg IVP once; over 2 minutes Route: IVP; Site: right forearm; nj1 14:30 Follow up: Response: No adverse reaction nj1 13:52 Drug: fentaNYL (PF) IVP 25 mcg IVP once Route: IVP; Site: right forearm; nj1 14:30 Follow up: Response: No adverse reaction; Pain is decreased nj1 16:23 Drug: HEParin IV 4000 units IV at bolus once {Co-Signature: estevan4 (Eze Zaman RN).} nj1 Route: IV; Rate: bolus; Site: right forearm; 16:23 Follow up: Response: No adverse reaction; IV Status: Completed infusion; IV Intake: nj1 0.8ml 16:25 Drug: Heparin (UT Drip) 12 units/kg/hr - ([place] [address] units, D5W IV 500 ml) IV at nj1 calculated rate Per protocol; Max initial rate 1000 units/hr {Co-Signature: tl4 (Eze Zaman RN).} Route: IV; Rate: calculated rate; Site: right forearm; 18:12 Follow up: Response: No adverse reaction; IV Status: Infusion continued upon transfer; nj1 IV Intake: 35ml Disposition: 20:38 Co-signature as Attending Physician, Mani Bailey MD I reviewed the patient's care rt provided by the Advanced Practice Provider and agree with the diagnosis and treatment plan. Disposition Summary: 01/10/24 16:08 Transfer Ordered Notes: [facility] Reason: Higher level of care cp Condition: Stable(01/10/24 16:08) cp Problem: new(01/10/24 16:08) cp Symptoms: have improved(01/10/24 16:08) cp Accepting Physician: DR Melendez(01/10/24 18:12) nj1 Diagnosis - Subsequent non-ST elevation (NSTEMI) myocardial infarction(01/10/24 16:08) cp Forms: - Medication Reconciliation Form cp - SBAR form cp Signatures: Dispatcher [employer] EDMS Vish Fuentes, WORKPLACE REHABILITATION OFFICER-C WORKPLACE REHABILITATION OFFICER-Cla1 Sunil Perez, LULÚ PA cp Mani Bailey MD MD rt Roberta Steinberg bc6 Johanny Jules, RN RN nj1 Eze Zaman RN tl4 Corrections: (The following items were deleted from the chart) 14:56 14:23 Chest Angio+CT.RAD.BRZ ordered. EDNY EDMS 15:31 14:33 Telemetry/MedSurg (Inpatient) cp bc6 15:31 14:33 cp bc6 16:06 14:33 Inpatient Admission cp cp 16:06 14:33 Eliot Brown cp cp 16:06 14:33 Stable cp cp 16:06 14:33 new cp cp 16:06 14:33 have improved cp cp 16:06 14:33 Standard cp cp 16:06 14:33 Subsequent non-ST elevation (NSTEMI) myocardial infarction cp cp 16:06 15:31 [facility] ER HOLD bc6 cp 16:06 15:31 ERHOLD- bc6 cp 16:39 16:08 doctor cp cp 18:12 16:39 DR Melendez cp nj1
--- NOTE | 2024-01-10 15:15 | RAD REPORT ---
EXAM DESCRIPTION: CT - Angio Aorta For Dissection - 01/10/2024 3:01 pm CLINICAL HISTORY: Chest pain radiating to the back. CHEST PAIN COMPARISON: <Comparisons> TECHNIQUE: CT angiography of the aorta was performed with MIPs. All CT scans are performed using dose optimization technique as appropriate and may include automated exposure control or mA/KV adjustment according to patient size. FINDINGS: A left aortic arch is present with normal branching pattern of the great vessels.No acute aortic finding is seen such as aneurysm, penetrating ulcer or dissection. The celiac axis, SMA, PREETHI and renal arteries are patent. No evidence of pulmonary embolism. Diffuse COPD is present. Pleural abutting area of nodularity is seen in the left lower lobe measuring 16 mm probably scarring. Ventral hernia is seen superior anterior abdomen containing fat. Mild fatty liver. 13 mm enhancing lesion medial hepatic lobe, likely benign. No biliary dilatation. . The spleen, pancreas, adrenal glands and kidneys are within normal limits for arterial phase imaging. No bowel obstruction, free fluid or abscess.Normal appendix.No pathologic enlarged lymphadenopathy id entified.Aortoiliac atherosclerosis. Mildly prominent prostate gland. Moderate fat containing bilateral inguinal hernias. IMPRESSION: No acute aortic finding is demonstrated. Prominent COPD.
--- NOTE | 2024-01-10 15:56 | P.HP ---
Certification for Inpatient Patient admitted to: Inpatient With expected LOS: >2 Midnights Patient will require the following post-hospital care: None Practitioner: I am a practitioner with admitting privileges, knowledge of patient current condition, hospital course, and medical plan of care. Services: Services provided to patient in accordance with Admission requirements found in Title 42 Section 412.3 of the Code of Federal Regulations Patient History Date of Service: 01/10/24 Reason for admission: NSTEMI History of Present Illness: 73-year-old male with history of atrial fibrillation on chronic anticoagulation, hypertension, chronic pain, CAD with previous bypass surgeries/stents presents emergency department chief complaint of chest pain. He reports that he was woken from sleep with an aching chest pain associated with diaphoresis. In 2013 at [facility] he reports he had a three-vessel CABG, also reports in February 15, 2023 he had a heart catheterization and there was a "blocked stent" and believes he had a two-vessel bypass at that time. He was evaluated in the emergency department, EKG was without STEMI criteria CT dissection protocol was negative for acute findings, initial high-sensitivity troponin is 127. His chest pain was resolved with nitroglycerin given by EMS, he did take aspirin prior to arrival as well. At home he takes Eliquis for his atrial fibrillation, his last dose was the evening of 01/09/2024. Discussed case with cardiology prior to admission, initiated heparin drip patient admitted for NSTEMI. Allergies No Known Allergies Allergy (Verified 10/06/16 09:04) Home Medications: Aspirin [Aspirin EC 81 MG] 81 mg PO DAILY 10/06/16 Cyclobenzaprine [Flexeril] 10 mg PO TID PRN 10/06/16 Gabapentin [Neurontin] 300 mg PO BID 10/06/16 Guaifenesin [Mucinex] 400 mg PO DAILYPRN PRN 10/06/16 Losartan Potassium [Cozaar] 50 mg PO DAILY 10/06/16 Oxycodone HCl/Acetaminophen [Percocet 10-325 mg Tablet] 1 each PO Q6HP PRN 10/06/16 Pravastatin Sodium [Pravachol] 40 mg PO 10/06/16 Tizanidine [Zanaflex] 4 mg PO BID 10/06/16 Codeine/APAP [Tylenol W/Codeine #3 tab] 1 tab PO Q4HP PRN #30 tab 10/09/16 Promethazine Tab [Phenergan] 25 mg PO Q6HP PRN #10 tab 10/09/16 Sulfamethoxazole/Trimethoprim [Bactrim Ds Tablet] 1 each PO BID #12 tablet 10/09/16 - Past Medical/Surgical History -: Atrial fibrillation on chronic evaluation -: CAD with previous bypass surgeries -: Chronic pain -: Hypertension -: Hyperlipidemia Psychosocial/ Personal History: Lives at home with family - Family History Family History: Reviewed- Non-Contributory - Social History Smoking Status: Never smoker Alcohol use: No CD- Drugs: No Caffeine use: Yes Place of Residence: Home Review of Systems 10-point ROS is otherwise unremarkable Cardiovascular: Chest Pain, As per HPI Physical Examination - Physical Exam General: Alert, In no apparent distress, Oriented x3 HEENT: Atraumatic, PERRLA, EOMI Neck: Supple, 2+ carotid pulse no bruit, No LAD Respiratory: Clear to auscultation bilaterally, Normal air movement Cardiovascular: Regular rate/rhythm, Normal S1 S2 Gastrointestinal: Normal bowel sounds, No tenderness Musculoskeletal: No tenderness Integumentary: No rashes Neurological: Normal speech, Normal strength at 5/5 x4 extr, Normal tone, Normal affect - Studies Laboratory Data (last 24 hrs) 01/10/24 01/10/24 01/10/24 13:25 13:25 13:25 WBC 9.30 Hgb 14.1 Hct 39.8 Plt Count 189 PT 10.9 INR 0.99 Sodium 139 Potassium 3.7 BUN 7 Creatinine 1.00 Glucose 112 H Magnesium 2.3 Total Bilirubin 0.6 AST 29 ALT 38 Alkaline Phosphatase 74 Assessment and Plan - Plan Assessment: NSTEMIhistory of CAD with previous bypass/stents Atrial fibrillation on chronic anticoagulation Hypertension Hyperlipidemia Chronic pain Plan: NSTEMIhistory of CAD with previous bypass/stents Atrial fibrillation on chronic anticoagulation Case discussed with cardiology-initiated heparin drip Continue aspirin, metoprolol, isosorbide mononitrate, atorvastatin As needed nitroglycerin, morphine-currently pain-free Last cardiac procedure January 2023-possibly two-vessel bypass? Trend troponin, monitor on telemetry Hypertension Hyperlipidemia Home medications continued Chronic pain Resume home medication when confirmed DVT PPX: Heparin drip Code status: Full Discharge Plan: Home Plan to discharge in: 48 Hours - Advance Directives Does patient have a Living Will: No Does patient have a Durable POA for Healthcare: No - Code Status/Comfort Care Code Status Assessed: Yes (Full code) Critical Care: No Time Spent Managing Pts Care (In Minutes): 70
[2024-01-10] MEDS ORDERED: HEPARIN/D5W 25,000 UNIT/500 ML BAG IV ONE (16:03)
[2024-01-10] MEDS ORDERED: HEPARIN 5000 UNIT/ML 1 ML VIAL ONE (16:03)
[2024-01-10 17:13] LABS: PTT, Activated Partial Thromb 33.8 SECONDS (24.3-36.9)
[2024-01-10 19:39] VITALS: TEMP 97.9
[2024-01-10 20:04] VITALS: BP 149/84; O2SAT 97
--- NOTE | 2024-01-11 17:25 | EKG ---
Test Date: 2024-01-10 Test Time: 12:23:56 Baker Helper: JAMIN MEASUREMENT RESULTS: Intervals: Rate: 80 VT: 192 QRSD: 112 QT: 400 QTc: 461 [place]: P: 76 VT: 192 QRS: -34 T: 84 INTERPRETIVE STATEMENTS: Normal sinus rhythm Left axis deviation Incomplete left bundle branch block Prolonged QT Abnormal ECG Compared to ECG 01/02/2024 15:31:49 Left-axis deviation now present Left bundle-branch block now present Prolonged QT interval now present ST (T wave) deviation no longer present Electronically Signed On 01-11-24 17:20:48 CDT by Lito Wilson
== END 2024-01-10 18:30 | disposition short-term general hospital (02) | DRG 282 ==
LOC: ER 12:18 → ERHOLD 15:42
PROVIDERS: ADMIT Emergency Medicine; ATTEND Emergency Medicine
DX: I21.4 Non-ST elevation (NSTEMI) myocardial infarction (principal); I48.91 Unspecified atrial fibrillation; I10 Essential (primary) hypertension; E78.5 Hyperlipidemia, unspecified; G89.29 Other chronic pain; I25.10 Atherosclerotic heart disease of native coronary artery without angina pectoris; Z95.5 Presence of coronary angioplasty implant and graft; Z95.1 Presence of aortocoronary bypass graft; Z79.01 Long term (current) use of anticoagulants; Z79.82 Long term (current) use of aspirin; Z79.899 Other long term (current) drug therapy; Z28.310 Unvaccinated for COVID-19
CPT/HCPCS: 36415; 71045; 71275; 74175; 80048; 80076; 83735; 83880; 84484; 85025; 85610; 85730; 93005; J1644; J2405; J3010; Q9967